=== PATIENT | male | born 1955 ===

== ENCOUNTER 2017-04-13 07:03 | Day surgery (SDC) | payer OTHER ==
[~2017-04-13] VITALS: Ht 185.4 cm; Wt 72.6 kg
[2017-04-13] VITALS (8 sets, daily range): BP systolic 99–117; BP diastolic 66–73
[2017-04-13] MEDS ORDERED: BSS 500ml btl ONE (07:09)
[2017-04-13] MEDS ORDERED: Maxitrol Opth Oint 3.5gm ONE (07:10)
[2017-04-13] MEDS ORDERED: Ciprofloxacin Opth Soln ONE ×2 (07:10→07:21)
[2017-04-13] MEDS ORDERED: DiphenhydrAMINE 50mg/ml Inj ONE (07:10)
[2017-04-13] MEDS ORDERED: Lidocaine 1% MPF 10mg/ml 5ml ONE (07:10)
[2017-04-13] MEDS ORDERED: Diclofenac Sod 0.1% Op Soln ONE ×2 (07:10→07:18)
[2017-04-13] MEDS ORDERED: Povidone-Iodine 5% opth solution ONE (07:10)
[2017-04-13] MEDS ORDERED: Carbachol 0.01% Op Soln 1.5ml vial ONE (07:10)
[2017-04-13] MEDS ORDERED: Dexamethasone 4mg/ml vial ONE (07:10)
[2017-04-13] MEDS ORDERED: BSS 15ml BTL ONE (07:11)
[2017-04-13] MEDS ORDERED: Sodium Hyaluronate 14 mg/ml 0.85ml ONE (07:11)
[2017-04-13] MEDS ORDERED: EPINEPHrine 1mg/1ml Amp ONE (07:11)
--- NOTE | 2017-04-13 07:11 | Pre-Procedure Note/Attestation ---
Pre-Procedure Note/Attestation Complete Prior to Procedure Planned Procedure: left Procedure Narrative: Cataract extraction with intraocular lens Indications for Procedure Pre-Operative Diagnosis: Cataract Attestation I attest that I discussed the nature of the procedure; its benefits; risks and complications; and alternatives (and the risks and benefits of such alternatives ), prior to the procedure, with the patient (or the patient's legal hvac sales representative). I attest that, if there was a reasonable possibility of needing a blood transfusion, the patient (or the patient's legal hvac sales representative) was given the [facility] standardized written summary, pursuant to the Donald Cathy Blood Safety Act ([place] Health and Safety Code # 1645, as amended). I attest that I re-evaluated the patient just prior to the surgery and that there has been no change in the patient's H&P, except as documented below: KYLE FIELD Apr 13, 2017 07:11
[2017-04-13] MEDS ORDERED: Cyclopentolate 1% Opth Sol ONE (07:17)
[2017-04-13] MEDS ORDERED: Phenylephrine 2.5% Op Soln ONE (07:18)
[2017-04-13] MEDS ORDERED: Akten 3.5% 1ml Btl ONE (07:20)
[2017-04-13] MEDS: Ciprofloxacin Opth Soln LEFT EYE SCH ×4 (07:37→07:56)
[2017-04-13] MEDS: Akten 3.5% 1ml Btl LEFT EYE SCH ×4 (07:38→07:56)
[2017-04-13] MEDS: Cyclopentolate 1% Opth Sol LEFT EYE SCH ×4 (07:38→07:56)
[2017-04-13] MEDS: Phenylephrine 2.5% Op Soln LEFT EYE SCH ×4 (07:38→07:56)
[2017-04-13] MEDS: Diclofenac Sod 0.1% Op Soln LEFT EYE SCH ×4 (07:40→07:56)
[2017-04-13] MEDS ORDERED: TRAZODONE HCL150 MG ORAL (07:58)
[2017-04-13] MEDS ORDERED: KLONOPIN2 MG PO (07:58)
[2017-04-13] MEDS ORDERED: NS Irrig 1000ml ONE (08:00)
[2017-04-13] MEDS ORDERED: LR 1000ml ONE (08:00)
[2017-04-13] MEDS ORDERED: Sterile Water Irrig 1000ml IRRIG ONE (08:00)
[2017-04-13] MEDS ORDERED: Midazolam 2mg/2ml Inj ONE (08:00)
--- NOTE | 2017-04-13 08:15 | Anethesia Preoperative Eval ---
Anesthesia Pre-op PMH/ROS General Date of Evaluation: Apr 13, 2017 Time of Evaluation: 08:00 ASA Score: ASA 2 Mallampati Score Class I : Soft palate, uvula, fauces, pillars visible Class II: Soft palate, uvula, fauces visible Class III: Soft palate, base of uvula visible Class IV: Only hard plate visible Mallampati Classification: Class I Family History: no anesthesia problems Allergies: Coded Allergies: PENICILLINS (Verified Allergy, Intermediate, vomiting , 04/13/17) Anesthesia Pre-op Phys. Exam Physician Exam Last Vital Signs Date Time Temp Pulse Resp B/P Pulse Ox O2 Delivery O2 Flow Rate FiO2 04/13/17 07:50 97.6 62 18 109/69 98 Room Air Diaz Carrillo M.D. Apr 13, 2017 08:15
--- NOTE | 2017-04-13 08:20 | Anethesia Preoperative Eval ---
Anesthesia Pre-op PMH/ROS General Date of Evaluation: Apr 13, 2017 Time of Evaluation: 08:00 ASA Score: ASA 2 Mallampati Score Class I : Soft palate, uvula, fauces, pillars visible Class II: Soft palate, uvula, fauces visible Class III: Soft palate, base of uvula visible Class IV: Only hard plate visible Mallampati Classification: Class I Family History: no anesthesia problems Allergies: Coded Allergies: PENICILLINS (Verified Allergy, Intermediate, vomiting , 04/13/17) Anesthesia Pre-op Phys. Exam Physician Exam Last Vital Signs Date Time Temp Pulse Resp B/P Pulse Ox O2 Delivery O2 Flow Rate FiO2 04/13/17 07:50 97.6 62 18 109/69 98 Room Air Constitutional: NAD Cardiovascular: RRR Respiratory: CTA Airway Exam Mallampati Score: Class II MO: full ROM: full Teeth: intact Anesthesia Pre-op A/P Labs see chart Accucheck see chart Risk Assessment & Plan Assessment: ASA 2 Plan: MAC Status Change Before Surgery: No Pre-Antibiotics Drug: Diaz Gusman M.D. Apr 13, 2017 08:20
--- NOTE | 2017-04-13 08:51 | Operative Note - PDOC ---
Operative Note Operative Note Date of Operation/Procedure: Apr 13, 2017 Chief Complaint: Poor vision, left eye Pre-op Diagnosis: Cataract Procedure: Cataract extraction with intraocular lens, left eye Post-op Diagnosis: Same Post-op Diagnosis: same as pre-op Operative Findings: consistent w/pre-op dx studies Surgeon: Hallie Stationary Engineer Supervisor: None Additional Surgeons: Waldo Anesthesiologist: Gerardo Anesthesia: MAC Specimen: none Complications: none Condition: stable Estimated Blood Loss: none Drains: none Implant(s) used?: Yes Indications for Procedure Poor vision, left eye Description of Procedure See dictation KYLE FIELD Apr 13, 2017 08:51
--- NOTE | 2017-04-13 09:00 | Immediate Post-Op Evaluation ---
Immediate Post-Op Evalulation Immediate Post-Op Evalulation Date of Evaluation: Apr 13, 2017 Time of Evaluation: 08:55 IV Fluids: 100 Estimated Blood Loss: 0 Urinary Output: 0 Blood Pressure Systolic: 116 Blood Pressure Diastolic: 51 Pulse Rate: 55 Respiratory Rate: 12 O2 Sat by Pulse Oximetry: 93 Temperature (Fahrenheit): 97.1 Pain Score (1-10): 0 Nausea: No Vomiting: No Patient Status: awake, reacts, none Hydration Status: adequate Given Within 1 Hr of Incision: Diaz Woodward M.D. Apr 13, 2017 09:00
[2017-04-13] MEDS ORDERED: Pred Forte 1% Opth Susp 1ml ONE (09:02)
--- NOTE | 2017-04-13 09:02 | 48 Hour Post Anesthesia Eval ---
Post Anesthesia Evaluation Procedure: Left Cataract extraction plus lens implant Date of Evaluation: Apr 13, 2017 Time of Evaluation: 09:00 Blood Pressure Systolic: 116 0: 51 Pulse Rate: 55 Respiratory Rate: 16 Temperature (Fahrenheit): 97 O2 Sat by Pulse Oximetry: 93 Nausea: No Vomiting: No If pain is > 6 Comment: 0 Hydration Status: adequate Mental Status/LOC: patient returned to baseline Follow-up care needed: patient intructions given Diaz Carrillo M.D. Apr 13, 2017 09:02
--- NOTE | 2017-04-17 16:30 | Operative Note - Dictated ---
DATE OF OPERATION: 04/13/2017 SURGEON: Sunil Sterling M.D. TRAINING AND DEVELOPMENT REP: None. ANESTHESIA: MAC by Dr. Diaz Carrillo. 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 PRINCIPLE PROCEDURE: Phacoemulsification with primary implantation of posterior chamber intraocular lens, left eye. PROCEDURE: The patient was evaluated in my office complaining of decrease in vision more in the left than the right eye. The left eye that was seen worse than the right eye. He has not experienced stereoscopic vision. After discussing the risks, benefits, and alternatives, with the associated guarded prognosis due to the possibility of entropion on the left eye, informed consent was obtained to proceed with the cataract extraction in the left eye. The patient was therefore brought to the [facility] outpatient surgery unit where the left pupil was dilated and an intravenous line was started. He was brought into the operating room where ocular anesthesia was obtained with topical drops supplemented with intravenous sedation. The left eye was then prepped and draped in the usual fashion for intraocular surgery. A clear cornea temporal incision was made. The anterior chamber was filled with nonpreserved lidocaine and viscoelastic. A continuous tear capsulotomy was accomplished. Hydrodissection was utilized to facilitate phacoemulsification. A two-handed phacoemulsification technique was used to fracture the lens nucleus into quadrants and the segments removed in sequence. Irrigation/aspiration hand piece was used to remove all residual lens cortex and barbadian the posterior capsule. The eye was then filled with viscoelastic. An Intraocular lens from [employer], model ZCB00 with a power of 17.0 diopters was folded into the lens insertion cartridge, injected into the posterior chamber of the eye, and positioned within the capsular bag. The viscoelastic was removed. The wound was adjusted, made watertight without sutures. The intraocular pressure was adjusted to normal. One drop of 10% Betadine, one drop of prednisolone acetate, and one drop of Vigamox were placed on the eye. The eye was covered in an eye shield. This completed the procedure. All sponge and needle counts were correct. The patient was taken to the [facility] in good condition, having tolerated the procedure well. Sunil Sterling M.D. DR: MARIELLA JOB#: [id number] CC: Kary Montiel M.D.
== END 2017-04-13 10:00 | disposition home or self-care (01) ==
LOC: SUR 07:03
DX: H25.812 Combined forms of age-related cataract, left eye (principal); G47.00 Insomnia, unspecified; Z88.0 Allergy status to penicillin
CPT/HCPCS: 66984; J0171; J1100; J2250; J3370; J7120; V2632; 94003; 94150